=== PATIENT | female | born 1950 | race Caucasian/White ===

== ENCOUNTER 2016-07-21 19:45 | Emergency (ER) | payer BC, MEDICAID ==
[~2016-07-21] VITALS: Ht 157.5 cm; Wt 113.4 kg
[~2016-07-21 19:45] MED LIST: LURA40TA PO
[2016-07-21 20:00] VITALS: BP 140/103; PULSE 49; RESP 15; TEMP 96.4; O2SAT 96
--- NOTE | 2016-07-21 20:00 | NUR ---
Placed in room 4 . Placed on cardiac nurse, blood pressure machine and pulse oximeter. To gown for exam. Side rails up. Report given to Odin SALMERON. Placed by Larissa SALMERON.
--- NOTE | 2016-07-21 20:10 | NUR ---
Pt states that for the past two days, she has LLQ pain 9/10. Pt states she has no appetite. ABD is tender. Pt states she has dysuria. Denies having any trouble with BM. Skins warm, dry, and normal. Will continue to monitor. No other injuries or complaints mentioned/noted. No distress noted.
--- NOTE | 2016-07-21 20:10 | NUR ---
ER Dr. Yusuf at bedside examining patient.
[2016-07-21] MEDS ORDERED: KETOROLAC TROMETHAMINE 60 MG/2 ML VIAL IM ONE (20:30)
[2016-07-21 21:04] LABS: BILIRUBIN,URINE NEGATIVE (NEGATIVE); BLOOD, URINE 2+ (NEGATIVE); CLARITY/URINE CLEAR (CLEAR); COLOR,URINE YELLOW (YELLOW); GLUCOSE,URINE NEGATIVE (NEGATIVE); KETONES,URINE NEGATIVE (NEGATIVE); LEUKOCYTE ESTERASE ,URINE NEGATIVE (NEGATIVE); NITRITE, URINE NEGATIVE (NEGATIVE); PROTEIN URINE NEGATIVE (NEGATIVE); UROBILINOGEN,URINE 0.2 (0.2-1.0)
[2016-07-21 21:14] LABS: BACTERIA,URINE FEW /HPF (None Seen); RBC,URINE 0-3 /HPF (0-3); WBC,URINE 0-3 /HPF (0-3)
[2016-07-21 21:15] LABS: MUCUS,URINE None Seen /LPF (None Seen)
[2016-07-21] MEDS ORDERED: NACL 0.9% 1,000 ML IV ONE (21:17)
[2016-07-21 21:44] VITALS: BP 138/90; PULSE 56; RESP 16; TEMP 96.4; O2SAT 96
--- NOTE | 2016-07-21 21:44 | NUR ---
Patient given written and verbal discharge instructions and verbalizes understanding. ER MD discussed with patient the results and treatment provided. Patient in stable condition. ID arm band removed. Rx of Motrin given. Patient educated on pain management and to follow up with PMD. Pain Scale 0/10. Opportunity for questions provided and answered.
== END 2016-07-21 21:44 | disposition home or self-care (01) ==
LOC: SED 19:45
DX: R10.9 Unspecified abdominal pain (principal); K21.9 Gastro-esophageal reflux disease without esophagitis; F17.200 Nicotine dependence, unspecified, uncomplicated
CPT/HCPCS: 81000; 96372; 99283; J1885

== ENCOUNTER 2016-08-01 19:19 | Emergency (ER) | payer BC ==
[~2016-08-01] VITALS: Ht 157.5 cm; Wt 111.1 kg
[2016-08-01 20:19] VITALS: BP 125/78; PULSE 43; RESP 22; TEMP 98.5; O2SAT 95
--- NOTE | 2016-08-01 20:36 | NUR ---
Pt states that she was having some chest wall pain earlier this morning. Pt states she has pain with inspiration, chest wall tenderness, and pain with cough. Pt rates pain 5/10 when breathing in. Will continue to monitor via monitoring manager. No other injuries or complaints mentioned/noted. No distress noted.
--- NOTE | 2016-08-01 20:36 | NUR ---
PT AMBULATORY TO BED 1
[2016-08-01] MEDS ORDERED: KETOROLAC TROMETHAMINE 30 MG VIAL IVP ONE (20:45)
[2016-08-01] MEDS ORDERED: PROCHLORPERAZINE EDISYLATE 10 MG/2 ML VIAL IVP ONE (20:45)
[2016-08-01] MEDS ORDERED: ONDANSETRON HCL 4 MG/2 ML VIAL IVP ONE (20:45)
[2016-08-01] MEDS ORDERED: DIPHENHYDRAMINE INJ 50 MG/ML VIAL IVP ONE (20:45)
[2016-08-01 20:56] LABS: BASOPHILS % (AUTO) 0.5 % (0.0-2.0); EOSINOPHILS # (AUTO) 0.1 K/uL (0.0-0.4); EOSINOPHILS % (AUTO) 1.8 % (0.0-4.0); HEMATOCRIT 45.1 % (36-48); HEMOGLOBIN 15.1 g/dL (12.0-16.0); LYMPHOCYTES # (AUTO) 2.2 K/uL (1.0-5.5); MEAN CORPUSCULAR HEMOGLOBIN 31 pg (27-31); MEAN CORPUSCULAR HGB CONC 34 % (32-36); MEAN CORPUSCULAR VOLUME 93 fL (79.0-98.0); MONOCYTES # (AUTO) 0.9 K/uL (0.0-1.0); MONOCYTES % (AUTO) 12.9 % (1.7-9.3); NEUTROPHILS % (AUTO) 53.8 % (40.0-70.0); PLATELET COUNT (AUTO) 257 K/uL (130-430); RED BLOOD CELL COUNT(AUTO) 4.87 MIL/uL (4.2-6.2); RED CELL DISTRIBUTION WIDTH 13.6 % (9.0-15.0); WHITE BLOOD COUNT (AUTO) 7.2 K/uL (4.8-10.8)
[2016-08-01 20:59] LABS: CALCIUM 8.7 mg/dL (8.4-11.0); CREATININE 1.1 mg/dL (0.55-1.30); POTASSIUM 3.9 mmol/L (3.5-5.1)
[2016-08-01 21:00] LABS: INR 0.9 (0.8-1.2); PROTHROMBIN TIME 10.2 SECS (9.5-12.5)
--- NOTE | 2016-08-01 21:00 | NUR ---
ER Dr. Patterson at bedside examining patient.
[2016-08-01 21:03] LABS: ALBUMIN 3.4 g/dL (3.4-4.8); TOTAL BILIRUBIN 0.2 mg/dL (0.0-1.0); TOTAL PROTEIN, SERUM 7.4 g/dL (6.4-8.3)
[2016-08-01 21:47] LABS: BILIRUBIN,URINE NEGATIVE (NEGATIVE); BLOOD, URINE 2+ (NEGATIVE); CLARITY/URINE CLEAR (CLEAR); COLOR,URINE YELLOW (YELLOW); GLUCOSE,URINE NEGATIVE (NEGATIVE); KETONES,URINE TRACE (NEGATIVE); LEUKOCYTE ESTERASE ,URINE NEGATIVE (NEGATIVE); NITRITE, URINE NEGATIVE (NEGATIVE); PH,URINE 5.5 (5.0-8.0); PROTEIN URINE NEGATIVE (NEGATIVE); UROBILINOGEN,URINE 0.2 (0.2-1.0)
[2016-08-01] MEDS ORDERED: KETOROLAC TROMETHAMINE 30 MG VIAL ONE (21:56)
[2016-08-01 22:18] LABS: BACTERIA,URINE FEW /HPF (None Seen); HYALINE CASTS, URINE 0-10 /LPF (None Seen); WBC,URINE 0-3 /HPF (0-3)
[2016-08-01 22:19] LABS: MUCUS,URINE 3+ /LPF (None Seen)
[2016-08-01 22:26] VITALS: BP 141/87; PULSE 50; RESP 22; TEMP 98.5; O2SAT 95
--- NOTE | 2016-08-01 22:26 | NUR ---
Patient given written and verbal discharge instructions and verbalizes understanding. ER MD discussed with patient the results and treatment provided. Patient in stable condition. ID arm band removed. IV catheter removed intact and dressing applied, no active bleeding. Rx of [place], Ibuprofen, and albuterol given. Patient educated on pain management and to follow up with PMD. Pain Scale 0/10. Opportunity for questions provided and answered.
== END 2016-08-01 22:26 | disposition home or self-care (01) ==
LOC: SED 19:19
DX: J40 Bronchitis, not specified as acute or chronic (principal); R09.1 Pleurisy; K21.9 Gastro-esophageal reflux disease without esophagitis
CPT/HCPCS: 36415; 71010; 80053; 81000; 84484; 85025; 85610; 93005; 96374; 99285; J0780; J1200; J1885; J2405

== ENCOUNTER 2016-09-16 17:30 | Emergency (ER) | payer BC ==
[~2016-09-16] VITALS: Ht 157.5 cm; Wt 111.1 kg
[2016-09-16 17:44] VITALS: BP_SYST 149
[2016-09-16 19:26] LABS: EOSINOPHILS # (AUTO) 0.3 K/uL (0.0-0.4)
[2016-09-16 19:27] LABS: BILIRUBIN,URINE NEGATIVE (NEGATIVE); BLOOD, URINE 2+ (NEGATIVE); CLARITY/URINE CLEAR (CLEAR); GLUCOSE,URINE NEGATIVE (NEGATIVE); KETONES,URINE NEGATIVE (NEGATIVE); NITRITE, URINE NEGATIVE (NEGATIVE); PROTEIN URINE NEGATIVE (NEGATIVE); UROBILINOGEN,URINE 0.2 (0.2-1.0)
[2016-09-16 19:33] LABS: HEMOGLOBIN 15.9 g/dL (12.0-16.0); MEAN CORPUSCULAR VOLUME 92 fL (79.0-98.0)
[2016-09-16 19:37] LABS: ANION GAP 6 (5-15); CALCIUM 9.1 mg/dL (8.4-11.0); CHLORIDE 102 mmol/L (98-107); CREATININE 1.16 mg/dL (0.55-1.30); GLUCOSE 123 mg/dL (70-99); POTASSIUM 3.9 mmol/L (3.5-5.1); SODIUM SERUM 136 mmol/L (136-145); UREA NITROGEN, BLOOD 17 mg/dL (8-21)
[2016-09-16 19:38] LABS: COLOR,URINE STRAW (YELLOW); GFR AFRICAN AMERICAN 60 mL/min (>90); LEUKOCYTE ESTERASE ,URINE 1+ (NEGATIVE)
[2016-09-16 19:39] LABS: BACTERIA,URINE FEW /HPF (None Seen); MUCUS,URINE None Seen /LPF (None Seen); RBC,URINE NONE SEEN /HPF (0-3)
[2016-09-16 19:41] LABS: ALANINE AMINOTRANSFERASE 22 U/L (12-78); ALBUMIN 3.7 g/dL (3.4-4.8); BASOPHILS # (AUTO) 0.2 K/uL (0.0-0.2); BASOPHILS % (AUTO) 2.1 % (0.0-2.0); EOSINOPHILS % (AUTO) 3.5 % (0.0-4.0); HEMATOCRIT 46.9 % (36-48); LYMPHOCYTES # (AUTO) 2.6 K/uL (1.0-5.5); LYMPHOCYTES % (AUTO) 32.5 % (20.5-51.5); MEAN CORPUSCULAR HEMOGLOBIN 31 pg (27-31); MEAN CORPUSCULAR HGB CONC 34 % (32-36); MONOCYTES # (AUTO) 0.3 K/uL (0.0-1.0); MONOCYTES % (AUTO) 3.5 % (1.7-9.3); NEUTROPHILS # (AUTO) 4.6 K/uL (1.8-7.7); NEUTROPHILS % (AUTO) 58.4 % (40.0-70.0); PLATELET COUNT (AUTO) 251 K/uL (130-430); RED CELL DISTRIBUTION WIDTH 13.3 % (9.0-15.0); TOTAL BILIRUBIN 0.3 mg/dL (0.0-1.0); TOTAL PROTEIN, SERUM 7.6 g/dL (6.4-8.3)
[2016-09-16 19:47] LABS: ASPARTATE AMINOTRANSFERASE < 5 U/L (10-37)
--- NOTE | 2016-09-16 20:20 | NUR ---
Placed in room 02 . Placed on cardiac catheterization technician, blood pressure machine and pulse oximeter. To gown for exam. Side rails up. Report given to FAVIOLA Mccabe.
[2016-09-16] MEDS ORDERED: KETOROLAC TROMETHAMINE 60 MG/2 ML VIAL IM ONE (20:30)
--- NOTE | 2016-09-16 20:30 | NUR ---
Pt presents to ED with c/o chrnic lower back pain 01/17, concerned about infection and wanted to be checked. A&Ox4, ambulatory, gait stable, no injury noted, denies SOB or chestpain, denies N/V/D. Will continue to monitor
--- NOTE | 2016-09-16 20:45 | NUR ---
MD Gaitan at bedside examining pt
[2016-09-16] MEDS: NITROFURANTOIN MONOHYD/M-CRYST 100 MG CAPSULE PO SCH ×2 (21:13→21:42)
[2016-09-16 21:20] VITALS: BP_SYST 142
--- NOTE | 2016-09-16 21:20 | NUR ---
Patient given written and verbal discharge instructions and verbalizes understanding. ER MD Granados discussed with patient the results and treatment provided. Patient in stable condition. ID arm band removed. Rx of tramadol and cipro given. Patient educated on pain management and to follow up with PMD. Pain Scale 0/10 Opportunity for questions provided and answered.
== END 2016-09-16 21:20 | disposition home or self-care (01) ==
LOC: SED 17:30
DX: S39.012A Strain of muscle, fascia and tendon of lower back, initial encounter (principal); N39.0 Urinary tract infection, site not specified; I10 Essential (primary) hypertension; K21.9 Gastro-esophageal reflux disease without esophagitis; X58.XXXA Exposure to other specified factors, initial encounter; Y93.89 Activity, other specified; Y99.8 Other external cause status; Y92.411 Interstate highway as the place of occurrence of the external cause
CPT/HCPCS: 36415; 72100; 80053; 81000; 85025; 96372; 99285; J1885

== ENCOUNTER 2016-11-19 11:25 | Emergency (ER) | payer BC ==
[~2016-11-19] VITALS: Ht 157.5 cm; Wt 112.0 kg
[2016-11-19 12:10] LABS: BASOPHILS # (AUTO) 0.2 K/uL (0.0-0.2); BASOPHILS % (AUTO) 3.4 % (0.0-2.0); EOSINOPHILS % (AUTO) 0.7 % (0.0-4.0); HEMATOCRIT 48.2 % (36-48); HEMOGLOBIN 15.8 g/dL (12.0-16.0); LYMPHOCYTES # (AUTO) 2.4 K/uL (1.0-5.5); MEAN CORPUSCULAR HEMOGLOBIN 31 pg (27-31); MEAN CORPUSCULAR HGB CONC 33 % (32-36); MEAN CORPUSCULAR VOLUME 93 fL (79.0-98.0); MONOCYTES # (AUTO) 0.3 K/uL (0.0-1.0); NEUTROPHILS # (AUTO) 3.8 K/uL (1.8-7.7); NEUTROPHILS % (AUTO) 55.9 % (40.0-70.0); PLATELET COUNT (AUTO) 248 K/uL (130-430); RED BLOOD CELL COUNT(AUTO) 5.17 MIL/uL (4.2-6.2); RED CELL DISTRIBUTION WIDTH 13.3 % (9.0-15.0); WHITE BLOOD COUNT (AUTO) 6.7 K/uL (4.8-10.8)
[2016-11-19 12:20] LABS: CALCIUM 9.1 mg/dL (8.4-11.0); CREATININE 1.39 mg/dL (0.55-1.30); POTASSIUM 4.2 mmol/L (3.5-5.1)
[2016-11-19 12:23] LABS: INR 0.9 (0.8-1.2); PROTHROMBIN TIME 10.1 SECS (9.5-12.5)
[2016-11-19 12:24] LABS: ALBUMIN 3.6 g/dL (3.4-4.8); TOTAL BILIRUBIN 0.3 mg/dL (0.0-1.0); TOTAL PROTEIN, SERUM 7.3 g/dL (6.4-8.3)
[2016-11-19 13:20] VITALS: BP_SYST 138
== END 2016-11-19 13:20 | disposition home or self-care (01) ==
LOC: SED 11:26
DX: K42.9 Umbilical hernia without obstruction or gangrene (principal); Z90.710 Acquired absence of both cervix and uterus
CPT/HCPCS: 36415; 80053; 83690-TC; 85025; 85610-TC; 85730-TC; 99285

== ENCOUNTER 2017-01-29 14:55 | Outpatient (CLI) | payer BC | END 2017-01-29 18:08 | disposition home or self-care (01) | LOC: SMA 14:55 | PROVIDERS: ATTEND Family Medicine | DX: Z12.31 Encounter for screening mammogram for malignant neoplasm of breast (principal) | CPT/HCPCS: G0202 ==

== ENCOUNTER 2017-02-14 01:13 | Emergency (ER) | payer BC ==
[~2017-02-14] VITALS: Ht 157.5 cm; Wt 111.1 kg
[2017-02-14 01:45] VITALS: BP_SYST 122
--- NOTE | 2017-02-14 01:45 | NUR ---
Patient to ER bed 3 to gown for evaluation. Side rails up. Report given to FAVIOLA Cramer.
--- NOTE | 2017-02-14 01:55 | NUR ---
Patient arrived to ED a/o x 4 with c/o SOB. Patient reports onset of symptoms began 1 hour prior. States she feels as though she can not catch her breath. Denies fever. Denies N/V. Upon assessment patient does not display increased work of breathing. Respirations even and unlabored. SpO2 98% on room air. Patient diagnosed with COPD 6 months. Lung sounds clear. Will continue to monitor.
--- NOTE | 2017-02-14 02:05 | NUR ---
ED MD Doss at bedside for medical evaluation.
[2017-02-14] MEDS ORDERED: LevALBUTEROL HCL 1.25 MG/0.5 ML *CONC.* VIAL.NEB (XOPENEX CONC.) INH ONE ×2 (02:15→03:45)
[2017-02-14] MEDS ORDERED: IPRATROPIUM BROM 0.5 MG/2.5 ML VIAL.NEB (ATROVENT) IH ONE (02:15)
--- NOTE | 2017-02-14 02:30 | NUR ---
RT at bedside to administer breathing treatment.
--- NOTE | 2017-02-14 03:00 | NUR ---
Patient reports ease of breathing. States she is beginning to feel better following the breathing treatment.
--- NOTE | 2017-02-14 03:42 | NUR ---
RT at bedside to administer breathing treatment.
[2017-02-14 04:00] VITALS: BP_SYST 133
--- NOTE | 2017-02-14 04:00 | NUR ---
Patient given written and verbal discharge instructions and verbalizes understanding. ER MD discussed with patient the results and treatment provided. Patient in stable condition. ID arm band removed. Rx of Advair Diskus and Albuterol given. Patient educated on pain management and to follow up with PMD. Pain Scale 0/10 at this time. Opportunity for questions provided and answered.
== END 2017-02-14 04:00 | disposition home or self-care (01) ==
LOC: SED 01:13
DX: J44.1 Chronic obstructive pulmonary disease with (acute) exacerbation (principal); I10 Essential (primary) hypertension; F31.9 Bipolar disorder, unspecified; F17.200 Nicotine dependence, unspecified, uncomplicated
CPT/HCPCS: 93005; 94640; 99284

== ENCOUNTER 2017-02-18 11:35 | Outpatient (CLI) | payer BC | END 2017-02-18 19:48 | disposition home or self-care (01) | LOC: SUS 11:35 | PROVIDERS: ATTEND Family Medicine | DX: N63 Unspecified lump in breast (principal) | CPT/HCPCS: 76642 ==

== ENCOUNTER 2017-05-15 11:35 | Emergency (ER) | payer BC ==
[~2017-05-15] VITALS: Ht 157.5 cm; Wt 111.1 kg
[2017-05-15 11:35] VITALS: BP_SYST 139
[2017-05-15 13:30] VITALS: BP_SYST 131
== END 2017-05-15 13:30 | disposition home or self-care (01) ==
LOC: SED 11:35
DX: J20.9 Acute bronchitis, unspecified (principal); J44.9 Chronic obstructive pulmonary disease, unspecified; K21.9 Gastro-esophageal reflux disease without esophagitis; F17.200 Nicotine dependence, unspecified, uncomplicated; Z71.6 Tobacco abuse counseling
CPT/HCPCS: 71020-TC; 99284

== ENCOUNTER 2017-05-18 10:51 | Emergency (ER) | payer BC ==
[~2017-05-18] VITALS: Ht 157.5 cm; Wt 111.1 kg
[2017-05-18 11:16] VITALS: BP_SYST 121
[2017-05-18] MEDS ORDERED: methylPREDNISolone SOD SUCC/PF 62.5 MG/ML VIAL IVP ONE (12:15)
[2017-05-18] MEDS ORDERED: IPRATROPIUM BROM 0.5 MG/2.5 ML VIAL.NEB (ATROVENT) IH ONE (12:15)
[2017-05-18] MEDS ORDERED: ASPIRIN 81 MG TAB.CHEW PO ONE (12:15)
[2017-05-18] MEDS ORDERED: ALBUTEROL SULFATE 0.083% 2.5 MG/3 ML VIAL.NEB IH ONE (12:15)
[2017-05-18 12:27] LABS: BASOPHILS # (AUTO) 0.1 K/uL (0.0-0.2); BASOPHILS % (AUTO) 1.3 % (0.0-2.0); EOSINOPHILS % (AUTO) 0.1 % (0.0-4.0); HEMATOCRIT 44.3 % (36-48); HEMOGLOBIN 14.5 g/dL (12.0-16.0); LYMPHOCYTES # (AUTO) 1.6 K/uL (1.0-5.5); LYMPHOCYTES % (AUTO) 13.8 % (20.5-51.5); MEAN CORPUSCULAR HEMOGLOBIN 31 pg (27-31); MEAN CORPUSCULAR HGB CONC 33 % (32-36); MEAN CORPUSCULAR VOLUME 94 fL (79.0-98.0); MONOCYTES # (AUTO) 0.5 K/uL (0.0-1.0); MONOCYTES % (AUTO) 4.7 % (1.7-9.3); NEUTROPHILS # (AUTO) 9.3 K/uL (1.8-7.7); NEUTROPHILS % (AUTO) 80.1 % (40.0-70.0); PLATELET COUNT (AUTO) 282 K/uL (130-430); RED BLOOD CELL COUNT(AUTO) 4.74 MIL/uL (4.2-6.2); WHITE BLOOD COUNT (AUTO) 11.5 K/uL (4.8-10.8)
[2017-05-18 12:43] LABS: CALCIUM 8.6 mg/dL (8.4-11.0); CREATININE 0.83 mg/dL (0.55-1.30); POTASSIUM 4.2 mmol/L (3.5-5.1)
[2017-05-18 12:48] LABS: ALBUMIN 3.2 g/dL (3.4-4.8); TOTAL BILIRUBIN 0.2 mg/dL (0.0-1.0)
[2017-05-18] MEDS ORDERED: DILTIAZEM HCL 120 MG CAP.SR.24H PO ONE (13:45)
[2017-05-18 14:26] VITALS: BP_SYST 139
== END 2017-05-18 14:26 | disposition home or self-care (01) ==
LOC: SED 10:51
DX: J40 Bronchitis, not specified as acute or chronic (principal); I48.91 Unspecified atrial fibrillation; J44.9 Chronic obstructive pulmonary disease, unspecified; K21.9 Gastro-esophageal reflux disease without esophagitis; F17.200 Nicotine dependence, unspecified, uncomplicated; Z71.6 Tobacco abuse counseling; Z90.49 Acquired absence of other specified parts of digestive tract
CPT/HCPCS: 36415; 71010; 80053; 82550; 84484; 85025; 85610; 85730; 93005; 94640; 96374; 99285; J2930

== ENCOUNTER 2017-06-19 01:14 | Emergency (ER) | payer BC ==
[~2017-06-19] VITALS: Ht 157.5 cm; Wt 111.1 kg
[2017-06-19 01:20] VITALS: BP_SYST 114
[2017-06-19] MEDS ORDERED: IPRATROPIUM/ALBUTEROL SULFATE 3 ML AMPUL.NEB INH ONE (01:45)
[2017-06-19] MEDS ORDERED: PREDNISONE 20 MG TABLET PO ONE (02:00)
[2017-06-19 02:10] VITALS: BP_SYST 118
== END 2017-06-19 17:53 | disposition home or self-care (01) ==
LOC: SED 01:14
DX: J44.1 Chronic obstructive pulmonary disease with (acute) exacerbation (principal); K21.9 Gastro-esophageal reflux disease without esophagitis; I48.91 Unspecified atrial fibrillation; F31.9 Bipolar disorder, unspecified; Z90.49 Acquired absence of other specified parts of digestive tract; Z90.710 Acquired absence of both cervix and uterus
CPT/HCPCS: 94640; 99283; J7512

== ENCOUNTER 2017-11-04 03:02 | Inpatient (IN) | payer BC, MEDICAID ==
[~2017-11-04] VITALS: Ht 157.5 cm; Wt 111.1 kg
[2017-11-04 03:02] VITALS: BP_SYST 134
[2017-11-04] MEDS ORDERED: NACL 0.9% 1,000 ML IV ONE (03:10)
[2017-11-04] MEDS ORDERED: IPRATROPIUM BROM 0.5 MG/2.5 ML VIAL.NEB (ATROVENT) IH ONE ×2 (03:15→03:45)
[2017-11-04] MEDS ORDERED: methylPREDNISolone SOD SUCC/PF 62.5 MG/ML VIAL IVP ONE (03:15)
[2017-11-04] MEDS ORDERED: LevALBUTEROL HCL 1.25 MG/0.5 ML *CONC.* VIAL.NEB (XOPENEX CONC.) INH ONE ×3 (03:15→06:15)
[2017-11-04 03:39] LABS: BASOPHILS # (AUTO) 0.2 K/uL (0.0-0.2); EOSINOPHILS # (AUTO) 0.1 K/uL (0.0-0.4); EOSINOPHILS % (AUTO) 1.4 % (0.0-4.0); LYMPHOCYTES # (AUTO) 1.5 K/uL (1.0-5.5); MEAN CORPUSCULAR VOLUME 93 fL (79.0-98.0); MONOCYTES # (AUTO) 0.3 K/uL (0.0-1.0); RED CELL DISTRIBUTION WIDTH 13.4 % (9.0-15.0)
[2017-11-04 03:51] LABS: BASOPHILS % (AUTO) 2.3 % (0.0-2.0); HEMATOCRIT 44.2 % (36-48); HEMOGLOBIN 14.7 g/dL (12.0-16.0); LYMPHOCYTES % (AUTO) 20.2 % (20.5-51.5); MEAN CORPUSCULAR HEMOGLOBIN 31 pg (27-31); MEAN CORPUSCULAR HGB CONC 33 % (32-36); MONOCYTES % (AUTO) 3.7 % (1.7-9.3); NEUTROPHILS # (AUTO) 5.3 K/uL (1.8-7.7); NEUTROPHILS % (AUTO) 72.4 % (40.0-70.0); PLATELET COUNT (AUTO) 204 K/uL (130-430); RED BLOOD CELL COUNT(AUTO) 4.77 MIL/uL (4.2-6.2); WHITE BLOOD COUNT (AUTO) 7.4 K/uL (4.8-10.8)
[2017-11-04 03:53] LABS: CALCIUM 8.4 mg/dL (8.4-11.0); CREATININE 0.99 mg/dL (0.55-1.30); POTASSIUM 3.9 mmol/L (3.5-5.1)
[2017-11-04 03:57] LABS: PROTHROMBIN TIME 10.4 SECS (9.5-12.5)
[2017-11-04 04:04] LABS: ALBUMIN 3.4 g/dL (3.4-4.8); TOTAL BILIRUBIN 0.8 mg/dL (0.0-1.0)
[2017-11-04 05:25] LABS: BILIRUBIN,URINE NEGATIVE (NEGATIVE); BLOOD, URINE 1+ (NEGATIVE); CLARITY/URINE CLEAR (CLEAR); COLOR,URINE YELLOW (YELLOW); GLUCOSE,URINE NEGATIVE (NEGATIVE); KETONES,URINE 1+ (NEGATIVE); LEUKOCYTE ESTERASE ,URINE NEGATIVE (NEGATIVE); NITRITE, URINE NEGATIVE (NEGATIVE); PROTEIN URINE NEGATIVE (NEGATIVE); UROBILINOGEN,URINE 0.2 (0.2-1.0)
[2017-11-04 05:40] LABS: BACTERIA,URINE FEW /HPF (None Seen); MUCUS,URINE None Seen /LPF (None Seen); RBC,URINE 0-3 /HPF (0-3); WBC,URINE 0-3 /HPF (0-3)
[2017-11-04 07:05] VITALS: BP_SYST 100
[2017-11-04] MEDS ORDERED: ACETAMINOPHEN 325 MG TABLET PO PRN (07:30)
[2017-11-04] MEDS ORDERED: LEVALBUTEROL HCL 0.63 MG/3 ML VIAL.NEB INH PRN (07:30)
[2017-11-04 08:31] VITALS: BP_SYST 100
[2017-11-04] MEDS ORDERED: ENOXAPARIN SODIUM 40 MG/0.4 ML SYRINGE SUBCUT ONE (10:30)
[2017-11-04] MEDS ORDERED: CARVEDILOL 6.25 MG TABLET (COREG) PO ONE (11:00)
[2017-11-04] MEDS ORDERED: FUROSEMIDE 20 MG/2 ML VIAL IVP ONE (11:00)
[2017-11-04] MEDS ORDERED: methylPREDNISolone SOD SUCC/PF 62.5 MG/ML VIAL IVP SCH (12:00)
[2017-11-04] MEDS ORDERED: AZITHROMYCIN 250 MG TABLET PO ONE (12:15)
[2017-11-04 12:36] VITALS: BP_SYST 119
[2017-11-04] MEDS: methylPREDNISolone SOD SUCC/PF 62.5 MG/ML VIAL IVP SCH ×2 (13:09→22:51)
[2017-11-04] MEDS: IPRATROPIUM BROM 0.5 MG/2.5 ML VIAL.NEB (ATROVENT) INH SCH ×2 (13:23→19:30)
[2017-11-04] MEDS: LevALBUTEROL HCL 1.25 MG/0.5 ML *CONC.* VIAL.NEB (XOPENEX CONC.) INH SCH ×2 (13:23→19:30)
[2017-11-04 16:59] VITALS: BP_SYST 96
[2017-11-04] MEDS ORDERED: traZODone HCL 50 MG TABLET (DESYREL) PO SCH (21:00)
[2017-11-04] MEDS ORDERED: CARVEDILOL 6.25 MG TABLET (COREG) PO SCH (21:00)
[2017-11-05] MEDS: IPRATROPIUM BROM 0.5 MG/2.5 ML VIAL.NEB (ATROVENT) INH SCH ×4 (00:40→19:00)
[2017-11-05] MEDS: LevALBUTEROL HCL 1.25 MG/0.5 ML *CONC.* VIAL.NEB (XOPENEX CONC.) INH SCH ×4 (00:40→19:00)
[2017-11-05 00:45] VITALS: BP_SYST 120
[2017-11-05] MEDS: methylPREDNISolone SOD SUCC/PF 62.5 MG/ML VIAL IVP SCH ×3 (05:38→20:19)
[2017-11-05 07:09] LABS: BASOPHILS # (AUTO) 0.4 K/uL (0.0-0.2); BASOPHILS % (AUTO) 3.6 % (0.0-2.0); EOSINOPHILS % (AUTO) 0.1 % (0.0-4.0); HEMATOCRIT 42.9 % (36-48); HEMOGLOBIN 14.2 g/dL (12.0-16.0); LYMPHOCYTES # (AUTO) 0.6 K/uL (1.0-5.5); LYMPHOCYTES % (AUTO) 5.7 % (20.5-51.5); MEAN CORPUSCULAR HEMOGLOBIN 31 pg (27-31); MEAN CORPUSCULAR HGB CONC 33 % (32-36); MEAN CORPUSCULAR VOLUME 94 fL (79.0-98.0); MONOCYTES # (AUTO) 0.2 K/uL (0.0-1.0); MONOCYTES % (AUTO) 1.9 % (1.7-9.3); NEUTROPHILS # (AUTO) 9.9 K/uL (1.8-7.7); NEUTROPHILS % (AUTO) 88.7 % (40.0-70.0); PLATELET COUNT (AUTO) 215 K/uL (130-430); RED BLOOD CELL COUNT(AUTO) 4.56 MIL/uL (4.2-6.2); RED CELL DISTRIBUTION WIDTH 13.4 % (9.0-15.0)
[2017-11-05 07:16] LABS: WHITE BLOOD COUNT (AUTO) 11.1 K/uL (4.8-10.8)
[2017-11-05 07:20] LABS: CREATININE 0.9 mg/dL (0.55-1.30); POTASSIUM 3.9 mmol/L (3.5-5.1); THYROID STIMULATING HORMONE 0.45 uIu/mL (0.34-4.82); TOTAL BILIRUBIN 0.4 mg/dL (0.0-1.0)
[2017-11-05 08:00] VITALS: BP_SYST 118
[2017-11-05] MEDS ORDERED: FUROSEMIDE 20 MG/2 ML VIAL IVP SCH (09:00)
[2017-11-05] MEDS: AZITHROMYCIN 250 MG TABLET PO SCH (09:18)
[2017-11-05] MEDS: ENOXAPARIN SODIUM 40 MG/0.4 ML SYRINGE SUBCUT SCH (09:18)
[2017-11-05] MEDS: CARVEDILOL 12.5 MG TABLET (COREG) PO SCH ×2 (09:18→21:00)
[2017-11-05 12:00] VITALS: BP_SYST 113
[2017-11-05 16:39] VITALS: BP_SYST 117
[2017-11-05 20:00] VITALS: BP_SYST 124
[2017-11-05] MEDS: FUROSEMIDE 20 MG/2 ML VIAL IVP SCH (20:19)
[2017-11-05] MEDS: traZODone HCL 50 MG TABLET (DESYREL) PO SCH (20:58)
[2017-11-05] MEDS ORDERED: NON-FORMULARY MEDICATION PO SCH (21:00)
[2017-11-06] MEDS: IPRATROPIUM BROM 0.5 MG/2.5 ML VIAL.NEB (ATROVENT) INH SCH ×4 (01:00→18:53)
[2017-11-06] MEDS: LevALBUTEROL HCL 1.25 MG/0.5 ML *CONC.* VIAL.NEB (XOPENEX CONC.) INH SCH ×4 (01:00→18:53)
[2017-11-06 02:03] VITALS: BP_SYST 105
[2017-11-06] MEDS: methylPREDNISolone SOD SUCC/PF 62.5 MG/ML VIAL IVP SCH (05:38)
[2017-11-06 07:19] LABS: HEMATOCRIT 44.9 % (36-48); HEMOGLOBIN 15.4 g/dL (12.0-16.0); MEAN CORPUSCULAR HEMOGLOBIN 32 pg (27-31); MEAN CORPUSCULAR HGB CONC 34 % (32-36); MEAN CORPUSCULAR VOLUME 93 fL (79.0-98.0); PLATELET COUNT (AUTO) 244 K/uL (130-430); RED BLOOD CELL COUNT(AUTO) 4.83 MIL/uL (4.2-6.2); RED CELL DISTRIBUTION WIDTH 13.7 % (9.0-15.0); WHITE BLOOD COUNT (AUTO) 13.9 K/uL (4.8-10.8)
[2017-11-06 08:05] VITALS: BP_SYST 118
[2017-11-06 08:33] LABS: CALCIUM 9.1 mg/dL (8.4-11.0); CREATININE 1.16 mg/dL (0.55-1.30); POTASSIUM 4.2 mmol/L (3.5-5.1)
[2017-11-06] MEDS: ENOXAPARIN SODIUM 40 MG/0.4 ML SYRINGE SUBCUT SCH (09:00)
[2017-11-06] MEDS: FUROSEMIDE 20 MG/2 ML VIAL IVP SCH ×2 (09:00→21:43)
[2017-11-06] MEDS: CARVEDILOL 12.5 MG TABLET (COREG) PO SCH ×2 (09:01→21:44)
[2017-11-06] MEDS: AZITHROMYCIN 250 MG TABLET PO SCH (09:01)
[2017-11-06 10:00] LABS: BAND % (MANUAL) 3 % (0-6); LYMPHOCYTES % (MANUAL) 14 % (20-46); MONOCYTES % (MANUAL) 1 % (0-11)
[2017-11-06 10:01] LABS: BASOPHILS % (MANUAL) 0 % (0-2); EOSINOPHILS % (MANUAL) 0 % (0-7)
[2017-11-06 12:39] VITALS: BP_SYST 117
[2017-11-06 16:16] VITALS: BP_SYST 119
[2017-11-06 20:20] VITALS: BP_SYST 146
[2017-11-06] MEDS: traZODone HCL 50 MG TABLET (DESYREL) PO SCH (21:42)
[2017-11-06] MEDS: PREDNISONE 20 MG TABLET PO SCH (21:42)
[2017-11-06 23:59] VITALS: BP_SYST 96
[2017-11-07] MEDS: IPRATROPIUM BROM 0.5 MG/2.5 ML VIAL.NEB (ATROVENT) INH SCH ×3 (00:42→13:36)
[2017-11-07] MEDS: LevALBUTEROL HCL 1.25 MG/0.5 ML *CONC.* VIAL.NEB (XOPENEX CONC.) INH SCH ×3 (00:42→13:36)
[2017-11-07 07:30] LABS: CREATININE 1.08 mg/dL (0.55-1.30)
[2017-11-07 08:00] VITALS: BP_SYST 97
[2017-11-07 10:39] VITALS: BP_SYST 93
[2017-11-07] MEDS: CARVEDILOL 12.5 MG TABLET (COREG) PO SCH (10:45)
[2017-11-07] MEDS: AZITHROMYCIN 250 MG TABLET PO SCH (10:45)
[2017-11-07] MEDS: FUROSEMIDE 20 MG/2 ML VIAL IVP SCH (10:45)
[2017-11-07] MEDS: PREDNISONE 20 MG TABLET PO SCH (10:45)
[2017-11-07] MEDS: ENOXAPARIN SODIUM 40 MG/0.4 ML SYRINGE SUBCUT SCH (10:46)
[2017-11-07 12:40] VITALS: BP_SYST 103
[2017-11-07] MEDS ORDERED: COR12.5 PO (15:56)
[2017-11-07] MEDS ORDERED: FURO-149 PO (15:57)
[2017-11-07] MEDS ORDERED: ALBMDI INH (15:58)
[2017-11-07] MEDS ORDERED: ASPI81TA2 PO (15:58)
[2017-11-07] MEDS ORDERED: METH4TAB3 PO (15:59)
[2017-11-07] MEDS ORDERED: TRAZ-126 PO (15:59)
[2017-11-07 17:55] VITALS: BP_SYST 103
[2017-11-07 18:10] VITALS: BP_SYST 139
== END 2017-11-07 19:38 | disposition home or self-care (01) | DRG 190 ==
LOC: SED 03:02 → STU 06:47
PROVIDERS: ADMIT Internal Medicine; ATTEND Family Medicine
DX: J44.0 Chronic obstructive pulmonary disease with (acute) lower respiratory infection (principal); I50.43 Acute on chronic combined systolic (congestive) and diastolic (congestive) heart failure; I27.81 Cor pulmonale (chronic); I42.9 Cardiomyopathy, unspecified; I48.91 Unspecified atrial fibrillation; E66.01 Morbid (severe) obesity due to excess calories; Z68.41 Body mass index [BMI] 40.0-44.9, adult; J44.1 Chronic obstructive pulmonary disease with (acute) exacerbation; F17.210 Nicotine dependence, cigarettes, uncomplicated; F31.9 Bipolar disorder, unspecified; J20.9 Acute bronchitis, unspecified; I49.3 Ventricular premature depolarization; Z80.1 Family history of malignant neoplasm of trachea, bronchus and lung; Z90.710 Acquired absence of both cervix and uterus; Z90.49 Acquired absence of other specified parts of digestive tract; Z71.6 Tobacco abuse counseling
CPT/HCPCS: 36415; 71045; 80048; 80053; 80061; 81000-TC; 82550-TC; 83880; 84443-TC; 84484; 85007; 85025; 85027; 85610-TC; 85730-TC; 93005; 93306; 94640; 94760; 96361; 96374; 99285; J1650; J1940; J2930; J7512; J7612; J7614; Q0144

== ENCOUNTER 2018-01-11 03:43 | Emergency (ER) | payer BC, MEDICAID ==
[~2018-01-11] VITALS: Ht 157.5 cm; Wt 111.1 kg
[2018-01-11 03:43] VITALS: BP_SYST 140
[~2018-01-11 03:43] MED LIST changes: +ALBMDI INH; +ASPI-1155 PO; +COR12.5 PO; +FURO-149 PO; +METH4TAB3 PO; +TRAZ-126 PO
[2018-01-11] MEDS ORDERED: VARE1TAB21 PO (03:59)
[2018-01-11] MEDS ORDERED: DEXAMETHASONE SOD PHOSPHATE 10 MG/ML VIAL IVP ONE (04:15)
[2018-01-11 04:26] VITALS: BP_SYST 134
== END 2018-01-11 04:26 | disposition home or self-care (01) ==
LOC: SED 03:43
DX: J44.9 Chronic obstructive pulmonary disease, unspecified (principal); R06.02 Shortness of breath; K21.9 Gastro-esophageal reflux disease without esophagitis; I48.91 Unspecified atrial fibrillation; Z79.899 Other long term (current) drug therapy; Z87.891 Personal history of nicotine dependence; Z79.82 Long term (current) use of aspirin
CPT/HCPCS: 96374; 99284; J1100; 93005

== ENCOUNTER 2018-06-28 23:01 | Inpatient (IN) | payer BC, MEDICAID ==
[~2018-06-28] VITALS: Ht 157.5 cm; Wt 120.7 kg
[~2018-06-28 23:01] MED LIST changes: +VARE1TAB21 PO
[2018-06-28 23:38] VITALS: BP_SYST 133
[2018-06-29] MEDS ORDERED: NACL 0.9% 1,000 ML IV ONE (00:30)
[2018-06-29] MEDS ORDERED: DILTIAZEM HCL 25 MG/5 ML VIAL IVP ONE (00:30)
[2018-06-29 00:53] LABS: BASOPHILS # (AUTO) 0.2 K/uL (0.0-0.2); BASOPHILS % (AUTO) 2.7 % (0.0-2.0); EOSINOPHILS # (AUTO) 0.1 K/uL (0.0-0.4); HEMOGLOBIN 15.1 g/dL (12.0-16.0); LYMPHOCYTES # (AUTO) 1.9 K/uL (1.0-5.5); LYMPHOCYTES % (AUTO) 34.2 % (20.5-51.5); MEAN CORPUSCULAR HEMOGLOBIN 30 pg (27-31); MEAN CORPUSCULAR HGB CONC 33 % (32-36); MEAN CORPUSCULAR VOLUME 92 fL (79.0-98.0); MONOCYTES # (AUTO) 0.5 K/uL (0.0-1.0); MONOCYTES % (AUTO) 8.6 % (1.7-9.3); NEUTROPHILS % (AUTO) 53.5 % (40.0-70.0); PLATELET COUNT (AUTO) 252 K/uL (130-430); RED BLOOD CELL COUNT(AUTO) 4.98 MIL/uL (4.2-6.2); RED CELL DISTRIBUTION WIDTH 13.4 % (9.0-15.0); WHITE BLOOD COUNT (AUTO) 5.7 K/uL (4.8-10.8)
[2018-06-29 01:04] LABS: CALCIUM 9.3 mg/dL (8.4-11.0); CREATININE 1.05 mg/dL (0.55-1.30); POTASSIUM 4.1 mmol/L (3.5-5.1)
[2018-06-29 01:14] LABS: ALBUMIN 3.5 g/dL (3.4-4.8); TOTAL BILIRUBIN 0.4 mg/dL (0.0-1.0)
[2018-06-29 01:26] LABS: INR 0.9 (0.8-1.2); PROTHROMBIN TIME 9.5 SECS (9.5-12.5)
[2018-06-29 03:57] VITALS: BP_SYST 100
[2018-06-29 08:06] VITALS: BP_SYST 111
[2018-06-29] MEDS: ASPIRIN 81 MG TAB.CHEW PO SCH (08:10)
[2018-06-29] MEDS ORDERED: METOPROLOL SUCCINATE 25 MG TAB.SR.24H (TOPROL XL) PO SCH (09:00)
[2018-06-29 11:35] VITALS: BP_SYST 117
[2018-06-29 16:39] VITALS: BP_SYST 127
[2018-06-29 19:47] VITALS: BP_SYST 134
[2018-06-29] MEDS: traZODone HCL 50 MG TABLET (DESYREL) PO PRN (20:09)
[2018-06-29] MEDS ORDERED: COMMUNICATION ORDER XX ONE (22:15)
[2018-06-30 00:12] VITALS: BP_SYST 136
[2018-06-30 01:42] LABS: CREATININE 1.04 mg/dL (0.55-1.30); POTASSIUM 4.1 mmol/L (3.5-5.1)
[2018-06-30 01:57] LABS: FREE T4 (FREE THYROXINE) 0.9 ng/dl (0.8-1.5); THYROID STIMULATING HORMONE 2.44 uIu/mL (0.36-3.74)
[2018-06-30 07:04] LABS: BASOPHILS % (AUTO) 0.7 % (0.0-2.0); EOSINOPHILS # (AUTO) 0.1 K/uL (0.0-0.4); EOSINOPHILS % (AUTO) 2.3 % (0.0-4.0); HEMOGLOBIN 14.4 g/dL (12.0-16.0); LYMPHOCYTES # (AUTO) 2.2 K/uL (1.0-5.5); LYMPHOCYTES % (AUTO) 38.4 % (20.5-51.5); MEAN CORPUSCULAR HEMOGLOBIN 31 pg (27-31); MEAN CORPUSCULAR HGB CONC 33 % (32-36); MEAN CORPUSCULAR VOLUME 94 fL (79.0-98.0); MONOCYTES # (AUTO) 0.3 K/uL (0.0-1.0); MONOCYTES % (AUTO) 4.5 % (1.7-9.3); NEUTROPHILS % (AUTO) 54.1 % (40.0-70.0); PLATELET COUNT (AUTO) 261 K/uL (130-430); RED BLOOD CELL COUNT(AUTO) 4.68 MIL/uL (4.2-6.2); RED CELL DISTRIBUTION WIDTH 13.3 % (9.0-15.0); WHITE BLOOD COUNT (AUTO) 5.6 K/uL (4.8-10.8)
[2018-06-30 08:45] VITALS: BP_SYST 95
[2018-06-30] MEDS: ASPIRIN 81 MG TAB.CHEW PO SCH (08:51)
[2018-06-30 12:36] VITALS: BP_SYST 114
[2018-06-30] MEDS ORDERED: FLECAINIDE ACETATE 50 MG TABLET (TAMBOCOR) PO ONE (13:00)
[2018-06-30 16:30] VITALS: BP_SYST 118
[2018-06-30 19:47] VITALS: BP_SYST 138
[2018-06-30] MEDS: LATUDA 40 MG PO SCH (20:05)
[2018-06-30] MEDS: traZODone HCL 50 MG TABLET (DESYREL) PO PRN (20:05)
[2018-06-30] MEDS: FLECAINIDE ACETATE 50 MG TABLET (TAMBOCOR) PO SCH (20:11)
[2018-07-01 00:30] VITALS: BP_SYST 93
[2018-07-01] MEDS: ASPIRIN 81 MG TAB.CHEW PO SCH (08:00)
[2018-07-01] MEDS: FLECAINIDE ACETATE 50 MG TABLET (TAMBOCOR) PO SCH ×2 (08:00→20:14)
[2018-07-01 08:02] VITALS: BP_SYST 119
[2018-07-01 12:29] VITALS: BP_SYST 122
[2018-07-01 16:08] VITALS: BP_SYST 120
[2018-07-01 20:11] VITALS: BP_SYST 120
[2018-07-01] MEDS: LATUDA 40 MG PO SCH (20:13)
[2018-07-01] MEDS: traZODone HCL 50 MG TABLET (DESYREL) PO PRN (20:18)
[2018-07-01 23:59] VITALS: BP_SYST 106
[2018-07-02 08:06] VITALS: BP_SYST 130
[2018-07-02] MEDS: ASPIRIN 81 MG TAB.CHEW PO SCH (08:49)
[2018-07-02] MEDS: FLECAINIDE ACETATE 50 MG TABLET (TAMBOCOR) PO SCH ×2 (08:50→21:08)
[2018-07-02 12:00] VITALS: BP_SYST 121
[2018-07-02 19:00] VITALS: BP_SYST 102
[2018-07-02 20:00] VITALS: BP_SYST 102
[2018-07-02] MEDS: LATUDA 40 MG PO SCH (21:07)
[2018-07-02] MEDS: traZODone HCL 50 MG TABLET (DESYREL) PO PRN (21:13)
[2018-07-02 23:50] VITALS: BP_SYST 87
[2018-07-03] MEDS: ASPIRIN 81 MG TAB.CHEW PO SCH (08:55)
[2018-07-03] MEDS: FLECAINIDE ACETATE 50 MG TABLET (TAMBOCOR) PO SCH (08:55)
[2018-07-03 09:01] VITALS: BP_SYST 111
[2018-07-03 12:29] VITALS: BP_SYST 131
[2018-07-03 14:36] VITALS: BP_SYST 131
[2018-07-03] MEDS ORDERED: ASPI-1155 PO (14:58)
[2018-07-03] MEDS ORDERED: FLEC50TA2 PO (14:58)
== END 2018-07-03 15:18 | disposition home or self-care (01) | DRG 308 ==
LOC: SED 23:01 → STU 06-29 03:31
PROVIDERS: ADMIT Family Medicine; ATTEND Family Medicine
DX: I48.91 Unspecified atrial fibrillation (principal); I50.21 Acute systolic (congestive) heart failure; D68.59 Other primary thrombophilia; Z68.42 Body mass index [BMI] 45.0-49.9, adult; I47.2 Ventricular tachycardia; E66.01 Morbid (severe) obesity due to excess calories; F31.9 Bipolar disorder, unspecified; F41.9 Anxiety disorder, unspecified; I49.3 Ventricular premature depolarization; K21.9 Gastro-esophageal reflux disease without esophagitis; J44.9 Chronic obstructive pulmonary disease, unspecified; Z79.899 Other long term (current) drug therapy; Z87.891 Personal history of nicotine dependence; Z90.710 Acquired absence of both cervix and uterus
CPT/HCPCS: 36415; 71045; 80048; 80053; 82550-TC; 83880; 84439; 84443-TC; 84484; 85025; 85379; 85610-TC; 85730-TC; 90656; 93005; 93306; 96361; 96374; 99285; G0378; J3490

== ENCOUNTER 2018-12-22 02:19 | Emergency (ER) | payer OTHER, BC ==
[~2018-12-22] VITALS: Ht 170.2 cm; Wt 111.1 kg
[~2018-12-22 02:19] MED LIST changes: -ALBMDI INH; -COR12.5 PO; +FLEC50TA2 PO; -FURO-149 PO; -METH4TAB3 PO; -TRAZ-126 PO; +TRAZ-219 PO; -VARE1TAB21 PO
[2018-12-22 02:23] VITALS: BP_SYST 124
--- NOTE | 2018-12-22 02:25 | NUR ---
Placed in room 8. Placed on quality assurance monitor body, blood pressure machine and pulse oximeter. To gown for exam. Side rails up.
--- NOTE | 2018-12-22 02:30 | NUR ---
Pt C/O asthma exacerbation since 10pm last night. Pt has hx of asthma but states she has been out of her medication for an extended period of time. Pt is using accessory muscles to breathe, O2 saturation is 98-100% on room air. Denies any chest pain, N/V/D, or any other symptoms.
--- NOTE | 2018-12-22 02:33 | NUR ---
ER Dr. Osorio at bedside examining patient.
--- NOTE | 2018-12-22 02:37 | NUR ---
BEVERAGE SERVER at bedside for breathing treatment
[2018-12-22] MEDS ORDERED: IPRATROPIUM/ALBUTEROL SULFATE 3 ML AMPUL.NEB (DUONEB) ONE (02:45)
[2018-12-22] MEDS ORDERED: methylPREDNISolone SOD SUCC/PF 62.5 MG/ML VIAL IM ONE (03:00)
--- NOTE | 2018-12-22 03:24 | NUR ---
Pt is sleeping comfortably in bed, no acute distress noted at this time. O2 saturation is 99% on room air. Will continue to monitor.
--- NOTE | 2018-12-22 03:30 | NUR ---
Radiology at bedside for chest xray
[2018-12-22 04:11] VITALS: BP_SYST 138
--- NOTE | 2018-12-22 04:12 | NUR ---
Patient given written and verbal discharge instructions and verbalizes understanding. ER MD discussed with patient the results and treatment provided. Patient in stable condition. ID arm band removed. Rx of Albuterol and Prednisone given. Patient educated on pain management and to follow up with PMD. Pain Scale 0. Opportunity for questions provided and answered. Medication side effect fact sheet provided.
== END 2018-12-22 04:11 | disposition home or self-care (01) ==
LOC: SED 02:19
DX: J45.901 Unspecified asthma with (acute) exacerbation (principal); I48.91 Unspecified atrial fibrillation; Z79.82 Long term (current) use of aspirin; Z79.899 Other long term (current) drug therapy
CPT/HCPCS: 71045; 94640; 96372; 99283; J2930; J7620

== ENCOUNTER 2019-10-10 10:53 | Emergency (ER) | payer BC, OTHER ==
[~2019-10-10] VITALS: Ht 157.5 cm; Wt 111.1 kg
[2019-10-10 11:09] VITALS: BP_SYST 138
[2019-10-10] MEDS ORDERED: BACITRACIN 1 GM OINT TP ONE (11:15)
[2019-10-10] MEDS ORDERED: LIDOCAINE 1% 10 MG/ML, 20 ML MDV SUBCUT ONE (11:15)
[2019-10-10] MEDS ORDERED: NAPROXEN 250 MG TABLET PO SCH (12:00)
[2019-10-10] MEDS ORDERED: NAPROXEN 250 MG TABLET PO ONE (12:15)
[2019-10-10 12:16] VITALS: BP_SYST 138
== END 2019-10-10 12:16 | disposition home or self-care (01) ==
LOC: SED 10:53
DX: L72.3 Sebaceous cyst (principal); J44.9 Chronic obstructive pulmonary disease, unspecified; K21.9 Gastro-esophageal reflux disease without esophagitis; I48.91 Unspecified atrial fibrillation; I51.9 Heart disease, unspecified; I50.9 Heart failure, unspecified; Z90.49 Acquired absence of other specified parts of digestive tract; Z79.899 Other long term (current) drug therapy; Z79.82 Long term (current) use of aspirin
CPT/HCPCS: 10060; 99283; J2001

== ENCOUNTER 2019-12-09 20:22 | Emergency (ER) | payer OTHER ==
[~2019-12-09] VITALS: Ht 157.5 cm; Wt 122.5 kg
[2019-12-09 20:25] VITALS: BP_SYST 126
--- NOTE | 2019-12-09 20:25 | NUR ---
Patient to ER bed 2 to gown for evaluation. Side rails up. Report given to MC.
--- NOTE | 2019-12-09 20:27 | NUR ---
ER at bedside examining patient.
--- NOTE | 2019-12-09 20:40 | NUR ---
CHEST X-RAY PERFORMED AT THE BEDSIDE.PT TOLERATED WELL.
[2019-12-09] MEDS ORDERED: ASPIRIN 81 MG TAB.CHEW PO ONE (20:45)
--- NOTE | 2019-12-09 20:49 | NUR ---
# 20 gauge angiocath placed to RT AC. Use of asceptic technique. Opsite placed over site. Blood return noted. Blood for lab drawn from site. Flushed with 10 cc of normal saline. No evidence of infiltration noted. Patient tolerated well.
[2019-12-09 21:08] LABS: CALCIUM 9.1 mg/dL (8.4-11.0); CREATININE 1.15 mg/dL (0.55-1.30)
[2019-12-09 21:09] LABS: BASOPHILS % (AUTO) 0.3 % (0.0-2.0); EOSINOPHILS # (AUTO) 0.1 K/uL (0.0-0.4); EOSINOPHILS % (AUTO) 1.2 % (0.0-4.0); HEMATOCRIT 43.3 % (36-48); HEMOGLOBIN 14.5 g/dL (12.0-16.0); LYMPHOCYTES # (AUTO) 2.2 K/uL (1.0-5.5); LYMPHOCYTES % (AUTO) 29.6 % (20.5-51.5); MEAN CORPUSCULAR HEMOGLOBIN 33 pg (27-31); MEAN CORPUSCULAR HGB CONC 33 % (32-36); MEAN CORPUSCULAR VOLUME 98 fL (79.0-98.0); MONOCYTES # (AUTO) 0.6 K/uL (0.0-1.0); MONOCYTES % (AUTO) 7.8 % (1.7-9.3); NEUTROPHILS # (AUTO) 4.4 K/uL (1.8-7.7); NEUTROPHILS % (AUTO) 61.1 % (40.0-70.0); PLATELET COUNT (AUTO) 281 K/uL (130-430); RED BLOOD CELL COUNT(AUTO) 4.43 MIL/uL (4.2-6.2); RED CELL DISTRIBUTION WIDTH 13.7 % (9.0-15.0); WHITE BLOOD COUNT (AUTO) 7.3 K/uL (4.8-10.8)
[2019-12-09 21:14] LABS: ALBUMIN 3.2 g/dL (3.4-4.8); TOTAL BILIRUBIN 0.3 mg/dL (0.0-1.0)
[2019-12-09] MEDS ORDERED: cefTRIAXone 1 GM IVPB PREMIX 50 ML IV ONE (21:45)
[2019-12-09 21:46] LABS: BILIRUBIN,URINE NEGATIVE (NEGATIVE); BLOOD, URINE NEGATIVE (NEGATIVE); CLARITY/URINE CLEAR (CLEAR); GLUCOSE,URINE NEGATIVE (NEGATIVE); KETONES,URINE NEGATIVE (NEGATIVE); LEUKOCYTE ESTERASE ,URINE NEGATIVE (NEGATIVE); NITRITE, URINE NEGATIVE (NEGATIVE); PROTEIN URINE NEGATIVE (NEGATIVE); UROBILINOGEN,URINE 0.2 (0.2-1.0)
[2019-12-09 21:47] LABS: COLOR,URINE STRAW (YELLOW)
[2019-12-09 22:22] VITALS: BP_SYST 125
[2019-12-09] MEDS ORDERED: AZITHROMYCIN 250 MG TABLET ONE (22:24)
--- NOTE | 2019-12-09 22:38 | NUR ---
Patient given written and verbal discharge instructions and verbalizes understanding. ER MD Yusuf discussed with patient the results and treatment provided. Patient in stable condition. ID arm band removed. IV catheter removed intact and dressing applied, no active bleeding. Rx of Cipro given. Patient educated on pain management and to follow up with PMD. Pain Scale 0/10. Opportunity for questions provided and answered. Medication side effect fact sheet provided.
== END 2019-12-09 22:22 | disposition home or self-care (01) ==
LOC: SED 20:22
DX: R00.2 Palpitations (principal); R06.02 Shortness of breath; N39.0 Urinary tract infection, site not specified; J44.9 Chronic obstructive pulmonary disease, unspecified; K21.9 Gastro-esophageal reflux disease without esophagitis; I48.91 Unspecified atrial fibrillation; Z79.899 Other long term (current) drug therapy; Z79.82 Long term (current) use of aspirin
CPT/HCPCS: 36415; 71045; 80053; 81003; 82550; 83880; 84484; 85025; 87040; 93005; 96365; 99285; J0696; Q0144

== ENCOUNTER 2020-03-22 23:00 | Inpatient (IN) | payer OTHER, SELFPAY ==
[~2020-03-22] VITALS: Ht 158.8 cm; Wt 131.1 kg
[2020-03-22 23:00] VITALS: BP_SYST 118
[~2020-03-22 23:00] MED LIST changes: -TRAZ-219 PO; +TRAZ-251 PO
[2020-03-22 23:50] LABS: BASOPHILS % (AUTO) 0.6 % (0.0-2.0); EOSINOPHILS # (AUTO) 0.1 K/uL (0.0-0.4); EOSINOPHILS % (AUTO) 1.3 % (0.0-4.0); HEMATOCRIT 41.8 % (36-48); HEMOGLOBIN 13.9 g/dL (12.0-16.0); LYMPHOCYTES # (AUTO) 2.9 K/uL (1.0-5.5); LYMPHOCYTES % (AUTO) 37.8 % (20.5-51.5); MEAN CORPUSCULAR HEMOGLOBIN 32 pg (27-31); MEAN CORPUSCULAR HGB CONC 33 % (32-36); MEAN CORPUSCULAR VOLUME 95 fL (79.0-98.0); MONOCYTES # (AUTO) 0.5 K/uL (0.0-1.0); MONOCYTES % (AUTO) 6.9 % (1.7-9.3); NEUTROPHILS # (AUTO) 4.2 K/uL (1.8-7.7); NEUTROPHILS % (AUTO) 53.4 % (40.0-70.0); PLATELET COUNT (AUTO) 203 K/uL (130-430); RED BLOOD CELL COUNT(AUTO) 4.38 MIL/uL (4.2-6.2); RED CELL DISTRIBUTION WIDTH 14.1 % (9.0-15.0); WHITE BLOOD COUNT (AUTO) 7.8 K/uL (4.8-10.8)
[2020-03-22 23:56] LABS: CALCIUM 8.7 mg/dL (8.4-11.0); CREATININE 0.55 mg/dL (0.55-1.30); POTASSIUM 3.6 mmol/L (3.5-5.1)
[2020-03-23] VITALS (7 sets, daily range): BP systolic 91–129
[2020-03-23 00:02] LABS: TOTAL BILIRUBIN 0.1 mg/dL (0.0-1.0)
[2020-03-23 00:07] LABS: PROTHROMBIN TIME 9.9 SECS (9.5-12.5)
[2020-03-23 00:39] LABS: BILIRUBIN,URINE NEGATIVE (NEGATIVE); BLOOD, URINE NEGATIVE (NEGATIVE); CLARITY/URINE CLEAR (CLEAR); COLOR,URINE YELLOW (YELLOW); GLUCOSE,URINE NEGATIVE (NEGATIVE); KETONES,URINE NEGATIVE (NEGATIVE); LEUKOCYTE ESTERASE ,URINE NEGATIVE (NEGATIVE); NITRITE, URINE NEGATIVE (NEGATIVE); PH,URINE 5.5 (5.0-8.0); PROTEIN URINE NEGATIVE (NEGATIVE); UROBILINOGEN,URINE 0.2 (0.2-1.0)
[2020-03-23] MEDS ORDERED: IOHEXOL 350 mgI/mL, 150 ML INFUS..BTL IV ONE (01:10)
[2020-03-23] MEDS ORDERED: FLU VACC QS2020-21(65UP)/PF 0.7 ML/SYRINGE I.M. PRN (03:30)
[2020-03-23] MEDS ORDERED: ROSUVASTATIN CALCIUM 5 MG/TAB (CRESTOR) PO SCH (09:00)
[2020-03-23] MEDS ORDERED: FUROSEMIDE 20 MG/2 ML VIAL IVP SCH (09:00)
[2020-03-23] MEDS: AMIODARONE HCL 200 MG TABLET PO SCH (10:12)
[2020-03-23] MEDS: APIXABAN 2.5 MG TABLET PO SCH ×2 (10:15→20:48)
[2020-03-23] MEDS: ASPIRIN 81 MG TAB.CHEW PO SCH (10:15)
[2020-03-23] MEDS: lisinopriL 5 MG TABLET PO SCH (10:16)
[2020-03-23] MEDS: METOPROLOL SUCCINATE 25 MG TAB.SR.24H (TOPROL XL) PO SCH (10:16)
[2020-03-23] MEDS ORDERED: FUROSEMIDE 20 MG TABLET PO ONE (13:00)
[2020-03-23] MEDS ORDERED: ENOXAPARIN SODIUM 40 MG/0.4 ML SYRINGE SUBCUT ONE (13:00)
[2020-03-23] MEDS: traZODone HCL 50 MG TABLET (DESYREL) PO SCH (20:48)
[2020-03-23] MEDS: FUROSEMIDE 20 MG TABLET PO SCH (20:49)
[2020-03-23] MEDS ORDERED: traZODone HCL 50 MG TABLET (DESYREL) PO SCH (21:00)
[2020-03-23] MEDS ORDERED: DIPHENHYDRAMINE HCL 12.5 MG/5 ML UDC PO ONE (21:45)
[2020-03-24 07:58] LABS: BASOPHILS % (AUTO) 0.3 % (0.0-2.0); EOSINOPHILS # (AUTO) 0.1 K/uL (0.0-0.4); EOSINOPHILS % (AUTO) 1.9 % (0.0-4.0); HEMATOCRIT 40.7 % (36-48); HEMOGLOBIN 13.8 g/dL (12.0-16.0); LYMPHOCYTES # (AUTO) 1.1 K/uL (1.0-5.5); MEAN CORPUSCULAR HEMOGLOBIN 32 pg (27-31); MEAN CORPUSCULAR HGB CONC 34 % (32-36); MEAN CORPUSCULAR VOLUME 95 fL (79.0-98.0); MONOCYTES # (AUTO) 0.3 K/uL (0.0-1.0); NEUTROPHILS # (AUTO) 3.2 K/uL (1.8-7.7); PLATELET COUNT (AUTO) 178 K/uL (130-430); RED CELL DISTRIBUTION WIDTH 14.3 % (9.0-15.0); WHITE BLOOD COUNT (AUTO) 4.8 K/uL (4.8-10.8)
[2020-03-24 08:04] VITALS: BP_SYST 119
[2020-03-24 08:35] LABS: CALCIUM 8.1 mg/dL (8.4-11.0); CREATININE 0.96 mg/dL (0.55-1.30); POTASSIUM 3.9 mmol/L (3.5-5.1); THYROID STIMULATING HORMONE 1.39 uIu/mL (0.36-3.74); TOTAL BILIRUBIN 0.7 mg/dL (0.0-1.0)
[2020-03-24] MEDS ORDERED: ENOXAPARIN SODIUM 40 MG/0.4 ML SYRINGE SUBCUT SCH (09:00)
[2020-03-24] MEDS: ATORVASTATIN 20 MG TABLET PO SCH (10:10)
[2020-03-24] MEDS: lisinopriL 5 MG TABLET PO SCH (10:14)
[2020-03-24] MEDS: AMIODARONE HCL 200 MG TABLET PO SCH (10:14)
[2020-03-24] MEDS: METOPROLOL SUCCINATE 25 MG TAB.SR.24H (TOPROL XL) PO SCH (10:15)
[2020-03-24] MEDS: FUROSEMIDE 20 MG TABLET PO SCH ×2 (10:16→20:38)
[2020-03-24] MEDS: ASPIRIN 81 MG TAB.CHEW PO SCH (10:16)
[2020-03-24] MEDS: APIXABAN 2.5 MG TABLET PO SCH ×2 (10:20→20:37)
[2020-03-24 11:13] LABS: NEUTROPHILS % (AUTO) 67.8 % (40.0-70.0)
[2020-03-24 12:00] VITALS: BP_SYST 141
[2020-03-24 16:47] VITALS: BP_SYST 120
[2020-03-24 20:30] VITALS: BP_SYST 110
[2020-03-24] MEDS: traZODone HCL 50 MG TABLET (DESYREL) PO SCH (20:36)
[2020-03-25 00:15] VITALS: BP_SYST 122
[2020-03-25 08:26] VITALS: BP_SYST 98
[2020-03-25] MEDS: METOPROLOL SUCCINATE 25 MG TAB.SR.24H (TOPROL XL) PO SCH (08:27)
[2020-03-25] MEDS: ATORVASTATIN 20 MG TABLET PO SCH (08:28)
[2020-03-25] MEDS: ASPIRIN 81 MG TAB.CHEW PO SCH (08:28)
[2020-03-25] MEDS: AMIODARONE HCL 200 MG TABLET PO SCH (08:28)
[2020-03-25] MEDS: APIXABAN 2.5 MG TABLET PO SCH (08:29)
[2020-03-25] MEDS: lisinopriL 5 MG TABLET PO SCH (08:30)
[2020-03-25] MEDS: FUROSEMIDE 20 MG TABLET PO SCH ×2 (08:30→12:29)
[2020-03-25 10:17] VITALS: BP_SYST 102
[2020-03-25 12:08] VITALS: BP_SYST 102
== END 2020-03-25 14:15 | disposition home or self-care (01) | DRG 292 ==
LOC: SED 23:00 → STU 03-23 02:33
PROVIDERS: ADMIT Family Medicine; ATTEND Family Medicine
DX: I11.0 Hypertensive heart disease with heart failure (principal); Z68.43 Body mass index [BMI] 50.0-59.9, adult; I50.23 Acute on chronic systolic (congestive) heart failure; I42.0 Dilated cardiomyopathy; E66.01 Morbid (severe) obesity due to excess calories; J44.9 Chronic obstructive pulmonary disease, unspecified; F31.9 Bipolar disorder, unspecified; R00.1 Bradycardia, unspecified; I48.0 Paroxysmal atrial fibrillation; Z20.828 Contact with and (suspected) exposure to other viral communicable diseases; Z79.01 Long term (current) use of anticoagulants; Z85.43 Personal history of malignant neoplasm of ovary; Z87.891 Personal history of nicotine dependence; Z90.49 Acquired absence of other specified parts of digestive tract; Z90.710 Acquired absence of both cervix and uterus; Z95.810 Presence of automatic (implantable) cardiac defibrillator
CPT/HCPCS: 36415; 71045; 71275; 80053; 81003; 82550-TC; 83880; 84443-TC; 84484; 85025; 85379; 85610-TC; 93005; 93306; 99285; G0378; J1650; J1940; Q9967